=== PATIENT | male | born 1985 | race African-American/Black ===

== ENCOUNTER 2017-02-27 13:05 | Emergency (ER) | payer MEDICAID ==
[~2017-02-27] VITALS: Ht 185.4 cm; Wt 137.1 kg
[2017-02-27 13:07] VITALS: BP 193/72
--- NOTE | 2017-02-27 13:11 | NUR ---
PATIENT AMBULATED TO ER BED 7.
--- NOTE | 2017-02-27 13:15 | NUR ---
PATIENT PRESENTS TO ED WITH C/O THROAT PAIN , DYSPHAGIA, MUFFLED VOICE, TONGUE SWELLING X 3 DAYS FULL SPEECH, MILD DIAPHORETIC HX---DENIES RX----NONE; DENIES N/V/D; SKIN IS PINK/WARM/DRY; AAOX4 WITH EVEN AND STEADY GAIT; LUNGS CLEAR BL; HR EVEN AND REGULAR; PT DENIES ANY FEVER, CP, SOB, OR COUGH AT THIS TIME; PATIENT STATES PAIN OF 8/10 AT THIS TIME; VSS; PATIENT POSITIONED FOR COMFORT; HOB ELEVATED; BEDRAILS UP X2; BED DOWN. ER MD MADE AWARE OF PT STATUS.
--- NOTE | 2017-02-27 13:15 | NUR ---
PATIENT BEING EVALUATED BY DR. ROBERTSON.
[2017-02-27 13:35] VITALS: BP 144/74
--- NOTE | 2017-02-27 13:35 | NUR ---
Patient discharged with v/s stable. Written and verbal after care instructions given and explained. Patient alert, oriented and verbalized understanding of instructions. Ambulatory with steady gait. All questions addressed prior to discharge. ID band removed. Patient advised to follow up with PMD. Rx of PENICILLIN, PREDNISONE given. Patient educated on indication of medication including possible reaction and side effects. Opportunity to ask questions provided and answered.
== END 2017-02-27 13:35 | disposition home or self-care (01) ==
LOC: MED 13:05
DX: K14.0 Glossitis (principal); Z91.013 Allergy to seafood
CPT/HCPCS: 99283